=== PATIENT | male | born 1955 | race Caucasian/White ===

== ENCOUNTER 2016-12-11 17:54 | Emergency (ER) | payer SELFPAY ==
[2016-12-11] MEDS ORDERED: SODIUM CHLORIDE 0.9% 1,000 ML IV ONE (18:49)
[2016-12-11 18:51] VITALS: BP 141/86
[2016-12-11] MEDS ORDERED: SODIUM CHLORIDE 0.9% 1,000ML IVBOLUS ONE (19:00)
[2016-12-11] MEDS ORDERED: SODIUM CHLORIDE FLUSH 10ML SYR IVF ONE (19:00)
[2016-12-11 19:12] LABS: HEMOGLOBIN 14.9 g/dL (13.7-18.0)
[2016-12-11 19:25] LABS: BLOOD UREA NITROGEN 19 mg/dL (7-18)
[2016-12-11 19:29] LABS: IS PT STATUS REG ER OR PRE ER? YES
== END 2016-12-11 19:59 | disposition left against medical advice (07) ==
LOC: ED 19:53
DX: I12.9 Hypertensive chronic kidney disease with stage 1 through stage 4 chronic kidney disease, or unspecified chronic kidney disease (principal); N18.9 Chronic kidney disease, unspecified; R42 Dizziness and giddiness
CPT/HCPCS: 36415; 80048; 80329; 82040; 83605; 84484; 85025; 93005; G0480

== ENCOUNTER → 2018-11-09 | Outpatient (CLI) | payer OTHER | END | disposition home or self-care (01) | LOC: CFH 11:18 | PROVIDERS: ATTEND Internal Medicine | DX: Z12.2 Encounter for screening for malignant neoplasm of respiratory organs (principal); R91.8 Other nonspecific abnormal finding of lung field; N28.1 Cyst of kidney, acquired | CPT/HCPCS: G0297 ==